=== PATIENT | female | born 1950 | race Caucasian/White ===

== ENCOUNTER → 2018-08-28 08:21 | Outpatient (CLI) | payer BC, SELFPAY ==
--- NOTE | 2018-08-28 | DI.MG.S_ITS ---
BILATERAL DIGITAL SCREENING MAMMOGRAM 3D/2D WITH CAD: 08/28/2018 CLINICAL: Routine screening. Comparison is made to exams dated: 03/13/2017 mammogram, 07/28/2014 mammogram, and 09/01/2013 mammogram - [facility]. The tissue of both breasts is heterogeneously dense. This may lower the sensitivity of mammography. Current study was also evaluated with a Computer Aided Detection (CAD) system. There are benign calcifications in both breasts. No significant masses, calcifications, or other findings are seen in either breast. There has been no significant interval change. IMPRESSION: There is no mammographic evidence of malignancy. A 1 year screening mammogram is recommended. This exam was interpreted at Station ID: [id number]. NOTE: For mammograms, a report in lay terms will be sent to the patient. Approximately 15% of breast malignancies will not be visualized mammographically. In the management of a palpable breast mass, a negative mammogram must not discourage biopsy of a clinically suspicious lesion. Electronically Signed By: Olayinka [email or web address]:08/28/2018 09:23:20 letter sent: Normal Exam ACR BI-RADS Category 2: Benign Finding(s) 3342F
[2018-08-28 10:42] LABS: Thyroid Stimulating Hormone 2.37 uIU/mL (0.47-4.68)
== END ==
PROVIDERS: PCP Physician Assistant; Visit Provider Physician Assistant
DX: Z12.31 Encounter for screening mammogram for malignant neoplasm of breast (principal); E03.9 Hypothyroidism, unspecified
CPT/HCPCS: 36415; 77063; 77067; 84443